=== PATIENT | female | born 1950 | race Caucasian/White ===

== ENCOUNTER 2018-09-01 09:23 | Outpatient (CLI) | payer MEDICARE, OTHER ==
--- NOTE | 2018-09-01 11:39 | BD ---
DEXA SCAN: 09/01/2018 PROVIDED CLINICAL HISTORY: Screening. FINDINGS: LUMBAR SPINE BMD (g/cm2) T-SCORE Z-SCORE L1 0.855 -1.2 0.4 L2 0.871 -1.4 0.4 L3 0.794 -2.6 -0.7 L4 0.890 -1.6 0.4 TOTAL 0.850 -1.8 0.0 FEMORAL NECK 0.727 -1.1 0.4 TOTAL 0.902 -0.3 0.9 TEN YEAR FRACTURE RISK: MAJOR OSTEOPOROTIC FRACTURE: 8.1% HIP FRACTURE: 0.6% IMPRESSION: The calculated bone mineral density meets the WHO criteria for osteopenia and places the patient at i ncreased risk for fracture. POS: [facility]
== END 2018-09-01 09:24 | disposition home or self-care (01) ==
LOC: BICMAMMO 09:23
PROVIDERS: ATTEND Family Medicine
DX: Z12.31 Encounter for screening mammogram for malignant neoplasm of breast (principal); Z13.820 Encounter for screening for osteoporosis; R92.1 Mammographic calcification found on diagnostic imaging of breast; Z78.0 Asymptomatic menopausal state
CPT/HCPCS: 77063; 77067; 77080

== ENCOUNTER 2019-09-04 10:46 | Outpatient (CLI) | payer MEDICARE, OTHER ==
--- NOTE | 2019-09-04 12:48 | MMO ---
Bilateral MAMMO Bilat Screen [facility]. CLINICAL HISTORY: Patient is 68 years old and is seen for screening. The patient has no family history of breast cancer. The patient has no personal history of cancer. VIEWS: The views performed were: bilateral craniocaudal with tomosynthesis and bilateral mediolateral oblique with tomosynthesis. FILMS COMPARED: The present examination has been compared to a prior imaging study performed at [facility] on 09/01/2018. This study has been interpreted with the assistance of computer-aided detection. MAMMOGRAM FINDINGS: There are scattered fibroglandular densities. There are stable benign appearing calcifications seen in both breasts. There are also vascular calcifications. There are no suspicious masses, suspicious calcifications, or new areas of architectural distortion. IMPRESSION: THERE IS NO MAMMOGRAPHIC EVIDENCE OF MALIGNANCY. A ROUTINE FOLLOW-UP MAMMOGRAM IN 1 YEAR IS RECOMMENDED. THE RESULTS OF THIS EXAM WERE SENT TO THE PATIENT. ACR BI-RADS Category 2 - Benign finding MAMMOGRAPHY NOTE: 1. A negative mammogram report should not delay a biopsy if a dominant of clinically suspicious mass is present. 2. Approximately 10% to 15% of breast cancers are not detected by mammography. 3. Adenosis and dense breasts may obscure an underlying neoplasm. Reported by: ANANYA GOLDSTEIN MD Electonically Signed: [id number]
== END 2019-09-04 10:47 | disposition home or self-care (01) ==
LOC: BICMAMMO 10:46
PROVIDERS: ATTEND Family Medicine
DX: Z12.31 Encounter for screening mammogram for malignant neoplasm of breast (principal)
CPT/HCPCS: 77063; 77067

== ENCOUNTER 2020-09-22 09:56 | Outpatient (CLI) | payer MEDICARE ==
--- NOTE | 2020-09-22 10:54 | BD ---
DEXA BONE DENSITY STUDY: Date: 09/22/2020 HISTORY: Postmenopausal. FINDINGS: Lumbar Spine: BMD (g/cm2) L1 0.864 T-Score: -1.1 L2 0.859 T-Score: -1.5 L3 0.783 T-Score: -2.7 L4 0.885 T-Score: -1.6 Total 0.847 T-Score: -1.8 Left Femoral Neck: 0.689 T-Score: -1.4 Total Femur: 0.941 T-Score: +0.0 IMPRESSION: 1. Osteopenia of the lumbar spine and left femoral neck. 2. The 10 year fracture risk for major osteoporotic fracture is 8.9% and for a hip fracture is 1%. T hese fracture probabilities are calculated for an untreated patient. POS: [facility]
--- NOTE | 2020-09-22 11:14 | MMO ---
Bilateral MAMMO Bilat Screen [facility]. CLINICAL HISTORY: Patient is 69 years old and is seen for screening. The patient has no family history of breast cancer. The patient has no personal history of cancer. VIEWS: The views performed were: bilateral craniocaudal with tomosynthesis and bilateral mediolateral oblique with tomosynthesis. FILMS COMPARED: The present examination has been compared to prior imaging studies performed at [facility] on 09/01/2018 and 09/04/2019. This study has been interpreted with the assistance of computer-aided detection. MAMMOGRAM FINDINGS: There are scattered fibroglandular densities. There are vascular calcifications seen in both breasts. There are no suspicious masses, suspicious calcifications, or new areas of architectural distortion. IMPRESSION: THERE IS NO MAMMOGRAPHIC EVIDENCE OF MALIGNANCY. A ROUTINE FOLLOW-UP MAMMOGRAM IN 1 YEAR IS RECOMMENDED. THE RESULTS OF THIS EXAM WERE SENT TO THE PATIENT. ACR BI-RADS Category 2 - Benign finding MAMMOGRAPHY NOTE: 1. A negative mammogram report should not delay a biopsy if a dominant of clinically suspicious mass is present. 2. Approximately 10% to 15% of breast cancers are not detected by mammography. 3. Adenosis and dense breasts may obscure an underlying neoplasm. Reported by: JACQUELINE JACOB MD Electonically Signed: [id number]
== END 2020-09-22 09:57 | disposition home or self-care (01) ==
LOC: BICMAMMO 09:56
PROVIDERS: ATTEND Family Medicine
DX: Z12.31 Encounter for screening mammogram for malignant neoplasm of breast (principal); Z13.820 Encounter for screening for osteoporosis; E28.39 Other primary ovarian failure; M85.89 Other specified disorders of bone density and structure, multiple sites; Z78.0 Asymptomatic menopausal state
CPT/HCPCS: 77063; 77067; 77080

== ENCOUNTER 2022-09-01 09:17 | Outpatient (CLI) | payer MEDICARE ==
[2022-09-01 15:05] LABS: #Basophils 0.1 thou/uL (0.0-0.2); #Eosinphils 0.7 thou/uL (0.0-0.7); #Lymphocytes 1.7 thou/uL (1.20-3.40); #Monocytes 0.5 thou/uL (0.11-0.59); #Neutrophils 3.2 thou/uL (1.40-6.50); %Basophils 0.8 % (0.0-1.0); %Eosinophils 11.3 % (0.0-10.0); %Monocytes 8.3 % (0.0-10.0); %Neutrophils 51.5 % (42.0-75.0); Mean Corpuscular HGB CONC 33.3 g/dL (32.0-36.0); Mean Corpuscular Hemoglobin 32.4 pg (27.0-31.0); Mean Corpuscular Volume 97.2 fl (78.0-98.0); Mean Platelet Volume 7.4 fL (7.4-10.4); Platelet Count 174 10x3/uL (130-400); RBC Distribution Width 12.6 % (11.5-14.5); Red Blood Cell (RBC) Count 4.31 mill/uL (4.20-5.40); White Blood Cell (WBC) Count 6.2 10x3/uL (4.8-10.8)
[2022-09-01 15:26] LABS: Bilirubin Negative (Negative); Blood, Urine Negative (Negative); Clarity Clear (Clear); Glucose, Urine (Dipstick) Normal (Negative); Ketone, Urine Negative (Negative); Leukocyte Negative Leu/uL (Negative); Nitrite Negative (Negative); Protein, Urine (Dipstick) Negative (Neg-Trace); Specific Gravity, Urine 1.023 (1.002-1.036); Urobilinogen Normal mg/dL (Less than 2); pH, Urine 6.5 (5.0-9.0)
[2022-09-01 16:35] LABS: ALT (SGPT) 27 U/L (8-55); AST (SGOT) 25 U/L (5-34); Albumin 4.4 g/dL (3.4-4.8); Alkaline Phosphatase 75 U/L (40-110); Anion Gap 13 mmol/L (10-20); BUN (Urea Nitrogen) 21 mg/dL (9.8-20.1); Bilirubin, Total 0.5 mg/dL (0.2-1.2); Calc. Creatinine Clearance 0 mL/min (70-130); Calcium 10.1 mg/dL (7.8-10.44); Carbon Dioxide 27 mmol/L (23-31); Cardiac Risk 4.1 (Less than 4.5); Chloride 106 mmol/L (98-107); Cholesterol 173 mg/dl (< 200 Desired); Estimated GFR 72; Globulin 2.4 g/dL (2.4-3.5); Glucose 118 mg/dL (80-115); HDL Cholesterol 42 mg/dL (>60 Neg Risk); LDL Cholesterol, Calculated 107 mg/dL; Potassium 3.9 mmol/L (3.5-5.1); Protein, Total 6.8 g/dL (5.8-8.1); Sodium 142 mmol/L (136-145); Triglycerides 121 mg/dL (Less than 150)
[2022-09-01 16:51] LABS: Vitamin D, 25 Hydroxy 29.3 ng/ml (> 30.0)
[2022-09-01 16:55] LABS: Free T4 (Free Thyroxine) 1.12 ng/dL (0.70-1.48)
== END 2022-09-01 09:18 | disposition home or self-care (01) ==
LOC: SCSRAD 09:17
PROVIDERS: ATTEND Family Medicine
DX: M25.511 Pain in right shoulder (principal); F51.01 Primary insomnia; E78.5 Hyperlipidemia, unspecified; M85.88 Other specified disorders of bone density and structure, other site; D75.89 Other specified diseases of blood and blood-forming organs; I10 Essential (primary) hypertension
CPT/HCPCS: 36415; 80053; 80061; 81003; 82306; 82607; 82746; 84439; 84443; 85025

== ENCOUNTER 2022-10-28 09:48 | Outpatient (CLI) | payer MEDICARE | END 2022-10-28 09:49 | disposition home or self-care (01) | LOC: BICMAMMO 09:48 | PROVIDERS: ATTEND Family Medicine | DX: Z12.31 Encounter for screening mammogram for malignant neoplasm of breast (principal); R92.1 Mammographic calcification found on diagnostic imaging of breast; Z91.89 Other specified personal risk factors, not elsewhere classified | CPT/HCPCS: 77063; 77067 ==

== ENCOUNTER 2023-07-11 22:08 | Inpatient (IN) | payer MEDICARE ==
[2023-07-11] MEDS ORDERED: Sodium Chloride 0.9% 100 ML ONE (22:38)
[2023-07-11] MEDS ORDERED: Cefepime 2 GM VIAL ONE (22:38)
[2023-07-11] MEDS ORDERED: Vancomycin (BATCH) 1.5 GM in Premix 1 BAG IVPB SCH (22:45)
[2023-07-11 22:59] LABS: #Basophils 0.1 thou/uL (0.0-0.2); #Monocytes 0.4 thou/uL (0.11-0.59); #Neutrophils 14.7 thou/uL (1.40-6.50); %Basophils 0.4 % (0.0-1.0); %Lymphocytes 3.4 % (21.0-51.0); %Monocytes 2.7 % (0.0-10.0); %Neutrophils 93.1 % (42.0-75.0); Hematocrit 46.1 % (36.0-47.0); Hemoglobin 14.8 g/dL (12.0-16.0); Mean Corpuscular HGB CONC 32.1 g/dL (32.0-36.0); Mean Corpuscular Hemoglobin 30.4 pg (27.0-31.0); Mean Corpuscular Volume 94.7 fl (78.0-98.0); Mean Platelet Volume 10.1 fL (7.4-10.4); Platelet Count 188 10x3/uL (130-400); RBC Distribution Width 14.9 % (11.5-14.5); Red Blood Cell (RBC) Count 4.87 mill/uL (4.20-5.40); White Blood Cell (WBC) Count 15.8 10x3/uL (4.8-10.8)
[2023-07-11 23:25] LABS: ALT (SGPT) 13 U/L (8-55); AST (SGOT) 20 U/L (5-34); Albumin 4.1 g/dL (3.4-4.8); Alkaline Phosphatase 79 U/L (40-110); Anion Gap 15 mmol/L (10-20); BUN (Urea Nitrogen) 7 mg/dL (9.8-20.1); Bilirubin, Total 0.7 mg/dL (0.2-1.2); Calc. Creatinine Clearance 0 mL/min (70-130); Calcium 9.2 mg/dL (7.8-10.44); Carbon Dioxide 17 mmol/L (23-31); Chloride 109 mmol/L (98-107); Estimated GFR 76; Glucose 194 mg/dL (80-115); Potassium 3.7 mmol/L (3.5-5.1); Protein, Total 7.1 g/dL (5.8-8.1); Sodium 137 mmol/L (136-145)
[2023-07-11 23:26] LABS: Troponin I Less than 0.010 ng/mL (< 0.028)
[2023-07-11 23:32] LABS: Bacteria/HPF None Seen HPF (None Seen); Bilirubin Negative (Negative); Blood, Urine Negative (Negative); CAUTI Indications for Culture Alt mental st,lethar; Clarity Clear (Clear); Glucose, Urine (Dipstick) 70 mg/dL (Negative); Ketone, Urine Negative (Negative); Leukocyte Negative Leu/uL (Negative); Nitrite Negative (Negative); Protein, Urine (Dipstick) 10 mg/dL (Neg-Trace); RBC/HPF None Seen HPF (0-3); Specific Gravity, Urine 1.017 (1.002-1.036); Squamous Epithelial 0-3 HPF (0-3); Urobilinogen Normal mg/dL (Less than 2); WBC/HPF 0-3 HPF (0-3); pH, Urine 6.5 (5.0-9.0)
[2023-07-11 23:34] LABS: Urine Culture Reflex No No
[2023-07-12 02:29] LABS: Lactic Acid 3.1 mmol/L (0.5-2.2)
[2023-07-12 02:39] LABS: Troponin I Less than 0.010 ng/mL (< 0.028)
[2023-07-12] MEDS ORDERED: Calcium Carbonate 500 MG ChewTAB PO PRN (02:50)
[2023-07-12] MEDS ORDERED: Ondansetron ODT 4 MG TAB PO PRN (02:50)
[2023-07-12] MEDS ORDERED: Piperacillin/Tazobactam 3.375 GM in Sodium Chloride 0.9% 100 ML IVPB SCH (03:00)
[2023-07-12] MEDS ORDERED: Lactated Ringer's 1,000 ML IV SCH (03:15)
[2023-07-12] MEDS: Acetaminophen 325 MG TAB PO PRN ×4 (03:50→20:58)
[2023-07-12 05:30] LABS: #Basophils 0.1 thou/uL (0.0-0.2); #Monocytes 1.2 thou/uL (0.11-0.59); #Neutrophils 9.4 thou/uL (1.40-6.50); %Basophils 0.4 % (0.0-1.0); %Eosinophils 0.1 % (0.0-10.0); %Lymphocytes 9.2 % (21.0-51.0); %Monocytes 10.3 % (0.0-10.0); %Neutrophils 79.5 % (42.0-75.0); Hematocrit 40.4 % (36.0-47.0); Hemoglobin 12.8 g/dL (12.0-16.0); Mean Corpuscular HGB CONC 31.7 g/dL (32.0-36.0); Mean Corpuscular Hemoglobin 30.7 pg (27.0-31.0); Mean Corpuscular Volume 96.9 fl (78.0-98.0); Mean Platelet Volume 10.1 fL (7.4-10.4); Platelet Count 170 10x3/uL (130-400); RBC Distribution Width 15.2 % (11.5-14.5); Red Blood Cell (RBC) Count 4.17 mill/uL (4.20-5.40); White Blood Cell (WBC) Count 11.8 10x3/uL (4.8-10.8)
[2023-07-12 05:54] LABS: Troponin I Less than 0.010 ng/mL (< 0.028)
[2023-07-12 06:13] LABS: Anion Gap 13 mmol/L (10-20); BUN (Urea Nitrogen) 8 mg/dL (9.8-20.1); Calc. Creatinine Clearance 89 mL/min (70-130); Calcium 8.9 mg/dL (7.8-10.44); Carbon Dioxide 19 mmol/L (23-31); Chloride 112 mmol/L (98-107); Estimated GFR 93; Glucose 116 mg/dL (80-115); Potassium 3.4 mmol/L (3.5-5.1); Sodium 141 mmol/L (136-145)
[2023-07-12] MEDS: Piperacillin/Tazobactam 3.375 GM in Sodium Chloride 0.9% 100 ML IVPB SCH ×2 (08:53→16:28)
[2023-07-12] MEDS: Cefepime 2 GM in Sodium Chloride 0.9% 100 ML IVPB SCH ×2 (08:55→20:59)
[2023-07-12] MEDS: Lisinopril 20 MG TAB PO SCH (08:58)
[2023-07-12] MEDS: Hydrochlorothiazide 25 MG TAB PO SCH (08:58)
[2023-07-12] MEDS: Famotidine 20 MG TAB PO SCH ×2 (08:58→20:59)
[2023-07-12] MEDS: Potassium Chloride 10 MEQ TAB PO SCH ×2 (09:00→20:59)
[2023-07-12] MEDS: Tamsulosin HCl 0.4 MG CAP PO SCH (11:24)
[2023-07-12] MEDS: Atorvastatin Calcium 20 MG TAB PO SCH (20:58)
[2023-07-13] MEDS: Piperacillin/Tazobactam 3.375 GM in Sodium Chloride 0.9% 100 ML IVPB SCH ×3 (00:34→18:46)
[2023-07-13] MEDS: Acetaminophen 325 MG TAB PO PRN ×5 (01:49→20:59)
[2023-07-13 04:18] LABS: #Basophils 0.1 thou/uL (0.0-0.2); #Eosinphils 0.2 thou/uL (0.0-0.7); #Monocytes 0.7 thou/uL (0.11-0.59); #Neutrophils 4.8 thou/uL (1.40-6.50); %Lymphocytes 12.8 % (21.0-51.0); %Monocytes 10.6 % (0.0-10.0); %Neutrophils 72.3 % (42.0-75.0); Hematocrit 40.2 % (36.0-47.0); Hemoglobin 12.8 g/dL (12.0-16.0); Mean Corpuscular HGB CONC 31.8 g/dL (32.0-36.0); Mean Corpuscular Hemoglobin 30.1 pg (27.0-31.0); Mean Corpuscular Volume 94.6 fl (78.0-98.0); Mean Platelet Volume 9.9 fL (7.4-10.4); Platelet Count 171 10x3/uL (130-400); RBC Distribution Width 15.2 % (11.5-14.5); Red Blood Cell (RBC) Count 4.25 mill/uL (4.20-5.40); White Blood Cell (WBC) Count 6.7 10x3/uL (4.8-10.8)
[2023-07-13 05:56] LABS: SARS-CoV-2 NAA Rapid Test Not Detected (NotDetected)
[2023-07-13 07:25] LABS: Anion Gap 13 mmol/L (10-20); BUN (Urea Nitrogen) 7 mg/dL (9.8-20.1); Calc. Creatinine Clearance 73 mL/min (70-130); Calcium 9.3 mg/dL (7.8-10.44); Carbon Dioxide 22 mmol/L (23-31); Chloride 107 mmol/L (98-107); Estimated GFR 75; Glucose 121 mg/dL (80-115); Potassium 3.2 mmol/L (3.5-5.1); Sodium 139 mmol/L (136-145)
[2023-07-13] MEDS: Cefepime 2 GM in Sodium Chloride 0.9% 100 ML IVPB SCH ×2 (10:11→21:09)
[2023-07-13] MEDS: Tamsulosin HCl 0.4 MG CAP PO SCH (10:11)
[2023-07-13] MEDS: Potassium Chloride 10 MEQ TAB PO SCH ×2 (10:12→20:58)
[2023-07-13] MEDS: Hydrochlorothiazide 25 MG TAB PO SCH (10:12)
[2023-07-13] MEDS: Lisinopril 20 MG TAB PO SCH (10:12)
[2023-07-13] MEDS: Famotidine 20 MG TAB PO SCH ×2 (10:12→20:58)
[2023-07-13] MEDS: Atorvastatin Calcium 20 MG TAB PO SCH (20:57)
[2023-07-13] MEDS ORDERED: Vancomycin (BATCH) 1.75 GM in Premix 1 BAG IVPB SCH (21:00)
[2023-07-13] MEDS ORDERED: Vancomycin 1 GM in Premix 1 BAG IVPB SCH (21:00)
[2023-07-14] MEDS: Tamsulosin HCl 0.4 MG CAP PO SCH (07:51)
[2023-07-14] MEDS: Cefepime 2 GM in Sodium Chloride 0.9% 100 ML IVPB SCH ×2 (08:39→20:35)
[2023-07-14] MEDS: Lisinopril 20 MG TAB PO SCH (08:40)
[2023-07-14] MEDS: Acetaminophen 325 MG TAB PO PRN ×3 (08:40→22:28)
[2023-07-14] MEDS: Potassium Chloride 10 MEQ TAB PO SCH ×2 (08:40→20:35)
[2023-07-14] MEDS: Hydrochlorothiazide 25 MG TAB PO SCH (08:41)
[2023-07-14] MEDS: Famotidine 20 MG TAB PO SCH ×2 (08:41→20:35)
[2023-07-14] MEDS ORDERED: Sodium Bicarbonate 2.5 MEQ/5 ML VIAL ONE (10:33)
[2023-07-14] MEDS ORDERED: Heparin 1,000 UNITS/ML VIAL ONE (10:33)
[2023-07-14] MEDS ORDERED: Lidocaine 1% PF 5 ML VIAL ONE (10:33)
[2023-07-14] MEDS: Vancomycin HCl 750 MG in Sodium Chloride 0.9% 250 ML 250 ML IVPB SCH ×2 (12:02→22:31)
[2023-07-14] MEDS: Atorvastatin Calcium 20 MG TAB PO SCH (20:35)
[2023-07-15] MEDS ORDERED: FLU VACC QS2023(65UP)/MF59C/PF 60 MCG/0.5 ML SYRINGE IM ONE (02:15)
[2023-07-15] MEDS: Cefepime 2 GM in Sodium Chloride 0.9% 100 ML IVPB SCH ×3 (06:06→22:28)
[2023-07-15] MEDS: Acetaminophen 325 MG TAB PO PRN ×2 (08:42→20:48)
[2023-07-15] MEDS: Tamsulosin HCl 0.4 MG CAP PO SCH (08:44)
[2023-07-15] MEDS: Lisinopril 20 MG TAB PO SCH (08:44)
[2023-07-15] MEDS: Potassium Chloride 10 MEQ TAB PO SCH ×2 (08:45→20:47)
[2023-07-15] MEDS: Famotidine 20 MG TAB PO SCH ×2 (08:45→20:47)
[2023-07-15] MEDS: Hydrochlorothiazide 25 MG TAB PO SCH (08:47)
[2023-07-15] MEDS ORDERED: Vancomycin HCl 750 MG in Sodium Chloride 0.9% 250 ML 250 ML IVPB SCH ×2 (09:15→11:00)
[2023-07-15 10:05] LABS: Anion Gap 12 mmol/L (10-20); BUN (Urea Nitrogen) 12 mg/dL (9.8-20.1); Calc. Creatinine Clearance 78 mL/min (70-130); Calcium 9.3 mg/dL (7.8-10.44); Carbon Dioxide 21 mmol/L (23-31); Chloride 109 mmol/L (98-107); Estimated GFR 83; Glucose 141 mg/dL (80-115); Potassium 3.3 mmol/L (3.5-5.1); Sodium 139 mmol/L (136-145)
[2023-07-15 10:07] LABS: Vancomycin, Trough 17.4 ug/mL
[2023-07-15] MEDS ORDERED: Potassium Chloride 20 MEQ TAB PO SCH (10:15)
[2023-07-15 11:01] LABS: Magnesium 1.9 mg/dL (1.6-2.6)
[2023-07-15 11:40] VITALS: BMI 31.1
[2023-07-15] MEDS ORDERED: DAPTOmycin 700 MG in Sodium Chloride 0.9% 50 ML IVPB SCH (13:30)
[2023-07-15] MEDS ORDERED: DAPTOMYCIN IVPB SCH (14:00)
[2023-07-15] MEDS ORDERED: SODIUM CHLORIDE 0.9% IVPB SCH (14:00)
[2023-07-15] MEDS: DAPTOmycin 700 MG in Sodium Chloride 0.9% 50 ML IVPB SCH (15:20)
[2023-07-15] MEDS: Atorvastatin Calcium 20 MG TAB PO SCH (20:47)
[2023-07-16] MEDS: Cefepime 2 GM in Sodium Chloride 0.9% 100 ML IVPB SCH ×3 (05:35→21:30)
[2023-07-16] MEDS ORDERED: Electrolyte Replacement Protocol 1 EACH FS SCH (08:30)
[2023-07-16 08:44] LABS: Anion Gap 14 mmol/L (10-20); BUN (Urea Nitrogen) 11 mg/dL (9.8-20.1); Calc. Creatinine Clearance 74 mL/min (70-130); Calcium 9.1 mg/dL (7.8-10.44); Carbon Dioxide 22 mmol/L (23-31); Chloride 109 mmol/L (98-107); Estimated GFR 78; Glucose 108 mg/dL (80-115); Magnesium 1.9 mg/dL (1.6-2.6); Potassium 3.7 mmol/L (3.5-5.1); Sodium 141 mmol/L (136-145)
[2023-07-16] MEDS ORDERED: Electrolyte Replacement Protocol FS PRN (08:45)
[2023-07-16] MEDS: Famotidine 20 MG TAB PO SCH ×2 (09:59→20:18)
[2023-07-16] MEDS: Tamsulosin HCl 0.4 MG CAP PO SCH (10:00)
[2023-07-16] MEDS: Lisinopril 20 MG TAB PO SCH (10:00)
[2023-07-16] MEDS: Hydrochlorothiazide 25 MG TAB PO SCH (10:00)
[2023-07-16] MEDS: Potassium Chloride 10 MEQ TAB PO SCH ×2 (10:00→20:19)
[2023-07-16] MEDS: Acetaminophen 325 MG TAB PO PRN ×2 (10:04→20:19)
[2023-07-16] MEDS ORDERED: Magnesium 2 GM/50 ML(in water) 2 GM in Premix 1 BAG IVPB SCH (13:30)
[2023-07-16] MEDS: DAPTOmycin 700 MG in Sodium Chloride 0.9% 50 ML IVPB SCH (17:19)
[2023-07-16] MEDS: Atorvastatin Calcium 20 MG TAB PO SCH (20:18)
[2023-07-17] MEDS: Cefepime 2 GM in Sodium Chloride 0.9% 100 ML IVPB SCH ×3 (05:32→22:10)
[2023-07-17] MEDS: Lisinopril 20 MG TAB PO SCH (08:45)
[2023-07-17] MEDS: Hydrochlorothiazide 25 MG TAB PO SCH (08:45)
[2023-07-17] MEDS: Famotidine 20 MG TAB PO SCH ×2 (08:46→20:02)
[2023-07-17] MEDS: Potassium Chloride 10 MEQ TAB PO SCH ×2 (08:47→20:02)
[2023-07-17] MEDS: Tamsulosin HCl 0.4 MG CAP PO SCH (08:51)
[2023-07-17 09:01] LABS: #Basophils 0.1 thou/uL (0.0-0.2); #Eosinphils 0.4 thou/uL (0.0-0.7); #Monocytes 0.6 thou/uL (0.11-0.59); #Neutrophils 3.6 thou/uL (1.40-6.50); %Basophils 1.2 % (0.0-1.0); %Eosinophils 5.9 % (0.0-10.0); %Lymphocytes 21.8 % (21.0-51.0); %Monocytes 10.4 % (0.0-10.0); Hematocrit 41.2 % (36.0-47.0); Hemoglobin 13.2 g/dL (12.0-16.0); Mean Corpuscular Hemoglobin 30.6 pg (27.0-31.0); Mean Corpuscular Volume 95.4 fl (78.0-98.0); Platelet Count 166 10x3/uL (130-400); RBC Distribution Width 14.6 % (11.5-14.5); Red Blood Cell (RBC) Count 4.32 mill/uL (4.20-5.40)
[2023-07-17 09:12] LABS: Phosphorus 2.9 mg/dL (2.3-4.7)
[2023-07-17 09:14] LABS: Anion Gap 15 mmol/L (10-20); BUN (Urea Nitrogen) 11 mg/dL (9.8-20.1); Calc. Creatinine Clearance 84 mL/min (70-130); Calcium 9.3 mg/dL (7.8-10.44); Carbon Dioxide 21 mmol/L (23-31); Chloride 108 mmol/L (98-107); Estimated GFR 91; Glucose 109 mg/dL (80-115); Magnesium 2.3 mg/dL (1.6-2.6); Potassium 3.7 mmol/L (3.5-5.1); Sodium 140 mmol/L (136-145)
[2023-07-17] MEDS: DAPTOmycin 700 MG in Sodium Chloride 0.9% 50 ML IVPB SCH (16:55)
[2023-07-17] MEDS: Acetaminophen 325 MG TAB PO PRN ×2 (17:57→22:11)
[2023-07-17] MEDS ORDERED: Activase 2 MG VIAL CATH SCH (18:45)
[2023-07-17] MEDS ORDERED: Sterile Water 10 ML VIAL IVP SCH (19:00)
[2023-07-17] MEDS: Atorvastatin Calcium 20 MG TAB PO SCH (20:03)
[2023-07-18] MEDS: Cefepime 2 GM in Sodium Chloride 0.9% 100 ML IVPB SCH ×3 (05:15→21:33)
[2023-07-18 07:32] LABS: #Basophils 0.1 thou/uL (0.0-0.2); #Eosinphils 0.4 thou/uL (0.0-0.7); #Monocytes 0.7 thou/uL (0.11-0.59); #Neutrophils 3.9 thou/uL (1.40-6.50); %Basophils 1.3 % (0.0-1.0); %Eosinophils 5.7 % (0.0-10.0); %Lymphocytes 24.2 % (21.0-51.0); %Monocytes 10.5 % (0.0-10.0); %Neutrophils 57.4 % (42.0-75.0); Hemoglobin 14.2 g/dL (12.0-16.0); Mean Corpuscular HGB CONC 31.6 g/dL (32.0-36.0); Mean Corpuscular Hemoglobin 30.2 pg (27.0-31.0); Mean Corpuscular Volume 95.7 fl (78.0-98.0); Mean Platelet Volume 9.8 fL (7.4-10.4); Platelet Count 181 10x3/uL (130-400); RBC Distribution Width 14.8 % (11.5-14.5); White Blood Cell (WBC) Count 6.8 10x3/uL (4.8-10.8)
[2023-07-18 08:04] LABS: Anion Gap 15 mmol/L (10-20); BUN (Urea Nitrogen) 12 mg/dL (9.8-20.1); CK (CPK) 16 U/L (29-168); Calc. Creatinine Clearance 79 mL/min (70-130); Calcium 9.8 mg/dL (7.8-10.44); Carbon Dioxide 22 mmol/L (23-31); Chloride 109 mmol/L (98-107); Estimated GFR 84; Glucose 114 mg/dL (80-115); Magnesium 2.1 mg/dL (1.6-2.6); PTT 26.6 sec (22.9-36.1); Potassium 3.7 mmol/L (3.5-5.1); Prothrombin Time 13.9 sec (12.0-14.7); Sodium 142 mmol/L (136-145)
[2023-07-18] MEDS: Hydrochlorothiazide 25 MG TAB PO SCH (08:28)
[2023-07-18] MEDS: Famotidine 20 MG TAB PO SCH ×2 (08:28→20:32)
[2023-07-18] MEDS: Lisinopril 20 MG TAB PO SCH (08:28)
[2023-07-18] MEDS: Tamsulosin HCl 0.4 MG CAP PO SCH (08:29)
[2023-07-18] MEDS: Potassium Chloride 10 MEQ TAB PO SCH ×2 (08:29→20:32)
[2023-07-18] MEDS: Acetaminophen 325 MG TAB PO PRN ×2 (08:34→20:33)
[2023-07-18] MEDS: DAPTOmycin 700 MG in Sodium Chloride 0.9% 50 ML IVPB SCH (15:38)
[2023-07-18] MEDS: Atorvastatin Calcium 20 MG TAB PO SCH (20:34)
[2023-07-19] MEDS: Cefepime 2 GM in Sodium Chloride 0.9% 100 ML IVPB SCH ×2 (05:15→14:29)
[2023-07-19 07:52] LABS: #Basophils 0.1 thou/uL (0.0-0.2); #Eosinphils 0.4 thou/uL (0.0-0.7); #Monocytes 0.8 thou/uL (0.11-0.59); #Neutrophils 5.3 thou/uL (1.40-6.50); %Basophils 1.4 % (0.0-1.0); %Eosinophils 4.5 % (0.0-10.0); %Lymphocytes 18.6 % (21.0-51.0); %Monocytes 9.7 % (0.0-10.0); %Neutrophils 65.2 % (42.0-75.0); Hematocrit 43.4 % (36.0-47.0); Hemoglobin 13.8 g/dL (12.0-16.0); Mean Corpuscular HGB CONC 31.8 g/dL (32.0-36.0); Mean Corpuscular Hemoglobin 30.4 pg (27.0-31.0); Mean Corpuscular Volume 95.6 fl (78.0-98.0); Mean Platelet Volume 10.1 fL (7.4-10.4); Platelet Count 192 10x3/uL (130-400); RBC Distribution Width 14.6 % (11.5-14.5); Red Blood Cell (RBC) Count 4.54 mill/uL (4.20-5.40); White Blood Cell (WBC) Count 8.1 10x3/uL (4.8-10.8)
[2023-07-19 08:12] LABS: Anion Gap 15 mmol/L (10-20); BUN (Urea Nitrogen) 13 mg/dL (9.8-20.1); CK (CPK) 25 U/L (29-168); Calc. Creatinine Clearance 81 mL/min (70-130); Calcium 9.8 mg/dL (7.8-10.44); Carbon Dioxide 19 mmol/L (23-31); Chloride 109 mmol/L (98-107); Estimated GFR 87; Glucose 109 mg/dL (80-115); Potassium 3.8 mmol/L (3.5-5.1); Sodium 139 mmol/L (136-145)
[2023-07-19] MEDS ORDERED: Magnesium 2 GM/50 ML(in water) 2 GM in Premix 1 BAG IVPB SCH (09:00)
[2023-07-19] MEDS: Tamsulosin HCl 0.4 MG CAP PO SCH (09:15)
[2023-07-19] MEDS: Famotidine 20 MG TAB PO SCH (09:16)
[2023-07-19] MEDS: Lisinopril 20 MG TAB PO SCH (09:18)
[2023-07-19] MEDS: Hydrochlorothiazide 25 MG TAB PO SCH (09:18)
[2023-07-19] MEDS: Potassium Chloride 10 MEQ TAB PO SCH (09:19)
[2023-07-19 09:26] VITALS: BP 117/70
[2023-07-19 09:33] VITALS: TEMP 97.8
[2023-07-19] MEDS: DAPTOmycin 700 MG in Sodium Chloride 0.9% 50 ML IVPB SCH (15:38)
== END 2023-07-19 16:41 | disposition home or self-care (01) | DRG 91 ==
LOC: ERS 22:08 → 2NO 07-12 00:41 → T4-B 07-14 14:00
PROVIDERS: ADMIT Student in an Organized Health Care Education/Training Program; ATTEND Hospitalist
PROC: 02HV33Z Insertion of Infusion Device into Superior Vena Cava, Percutaneous Approach (ICD-10-PCS; principal; 2023-07-14)
PROC: B5181ZA Fluoroscopy of Superior Vena Cava using Low Osmolar Contrast, Guidance (ICD-10-PCS; 2023-07-14)
PROC: 3E04329 Introduction of Other Anti-infective into Central Vein, Percutaneous Approach (ICD-10-PCS; 2023-07-14)
DX: T85.730A Infection and inflammatory reaction due to ventricular intracranial (communicating) shunt, initial encounter (principal); A41.9 Sepsis, unspecified organism; I82.621 Acute embolism and thrombosis of deep veins of right upper extremity; I10 Essential (primary) hypertension; M79.89 Other specified soft tissue disorders; E87.6 Hypokalemia; Z98.890 Other specified postprocedural states; Z79.899 Other long term (current) drug therapy; Z11.52 Encounter for screening for COVID-19; E78.00 Pure hypercholesterolemia, unspecified
CPT/HCPCS: 36415; 36569; 51701; 70450; 71045; 75809; 80048; 80053; 80202; 81001; 82140; 82550; 83605; 83735; 83880; 84100; 84443; 84484; 85025; 85610; 85730; 86850; 86900; 86901; 87040; 87086; 93005; 93970; 96365; 96367; C1751; J0692; J0878; J1644; J2543; J2997; J3370; J3475; J3490; J7050; J7120

== ENCOUNTER 2023-09-16 15:43 | Inpatient (IN) | payer MEDICARE ==
[2023-09-16 16:50] LABS: Amphetamine Not Detected (NotDetected); Barbiturates Screen Not Detected (NotDetected); Benzodiazepine Screen Not Detected (NotDetected); Cocaine Metabolite Screen Not Detected (NotDetected); Methadone Not Detected (NotDetected); Methamphetamine Not Detected (NotDetected); Opiate Screen Detected (NotDetected); Oxycodone Screen Not Detected (NotDetected); Phencyclidine (PCP) Not Detected (NotDetected); THC/Cannabinoid Screen Not Detected (NotDetected); Tricyclic Screen Not Detected (NotDetected)
[2023-09-16] MEDS ORDERED: Bisacodyl 10 MG SUPP PR PRN (17:08)
[2023-09-16] MEDS ORDERED: Bisacodyl 5 MG TAB PO PRN (17:08)
[2023-09-16] MEDS ORDERED: Ondansetron PF 4 MG/2 ML Vial IVP PRN (17:08)
[2023-09-16] MEDS ORDERED: Senokot S 8.6-50 MG TAB PO PRN (17:08)
[2023-09-16] MEDS ORDERED: Ondansetron ODT 4 MG TAB PO PRN (17:08)
[2023-09-16] MEDS ORDERED: HYDROcodone/Acetaminophen 10/325 mg Tablet PO PRN (17:08)
[2023-09-16] MEDS ORDERED: Calcium Carbonate 500 MG ChewTAB PO PRN (17:08)
[2023-09-16] MEDS ORDERED: NOREPINEPHRINE 8 MG/250 ML-D5W 250 ML IVPB SCH (17:15)
[2023-09-16 18:25] LABS: Bacteria/HPF None Seen HPF (None Seen); Bilirubin Negative (Negative); Blood, Urine 2+ (Negative); Clarity Clear (Clear); Glucose, Urine (Dipstick) Normal (Negative); Ketone, Urine Negative (Negative); Leukocyte Negative Leu/uL (Negative); Nitrite Negative (Negative); Protein, Urine (Dipstick) Negative (Neg-Trace); RBC/HPF 0-3 HPF (0-3); Specific Gravity, Urine 1.004 (1.002-1.036); Squamous Epithelial None Seen HPF (0-3); Urobilinogen Normal mg/dL (Less than 2); WBC/HPF 0-3 HPF (0-3)
[2023-09-16 18:45] VITALS: BP 120/102
[2023-09-16] MEDS: Sodium Chloride 0.9% 1,000 ML IV SCH (19:24)
[2023-09-16] MEDS: Ciprofloxacin 500 MG TAB PO SCH (21:21)
[2023-09-16] MEDS: Famotidine 20 MG TAB PO SCH (21:22)
[2023-09-16 22:14] VITALS: BMI 32.1
[2023-09-17 06:56] LABS: Anion Gap 10 mmol/L (10-20); BUN (Urea Nitrogen) 11 mg/dL (9.8-20.1); Calc. Creatinine Clearance 63 mL/min (70-130); Calcium 7.6 mg/dL (7.8-10.44); Carbon Dioxide 19 mmol/L (23-31); Chloride 118 mmol/L (98-107); Estimated GFR 61; Glucose 111 mg/dL (80-115); Potassium 3.9 mmol/L (3.5-5.1); Sodium 143 mmol/L (136-145)
[2023-09-17 08:00] LABS: #Eosinphils 0.2 thou/uL (0.0-0.7); #Monocytes 0.7 thou/uL (0.11-0.59); #Neutrophils 4.2 thou/uL (1.40-6.50); %Basophils 0.6 % (0.0-1.0); %Eosinophils 2.7 % (0.0-10.0); %Lymphocytes 17.9 % (21.0-51.0); %Monocytes 10.8 % (0.0-10.0); %Neutrophils 67.2 % (42.0-75.0); Hemoglobin 11.1 g/dL (12.0-16.0); Mean Corpuscular HGB CONC 31.7 g/dL (32.0-36.0); Mean Corpuscular Hemoglobin 30.7 pg (27.0-31.0); Mean Platelet Volume 10.6 fL (7.4-10.4); Platelet Count 136 10x3/uL (130-400); RBC Distribution Width 17.2 % (11.5-14.5); Red Blood Cell (RBC) Count 3.61 mill/uL (4.20-5.40); White Blood Cell (WBC) Count 6.3 10x3/uL (4.8-10.8)
[2023-09-17] MEDS: Tamsulosin HCl 0.4 MG CAP PO SCH (08:22)
[2023-09-17 09:55] VITALS: TEMP 98.3
== END 2023-09-17 12:20 | disposition home or self-care (01) | DRG 918 ==
LOC: ERS 15:43 → ERHOLD 17:15 → CCU 20:44
PROVIDERS: ADMIT Internal Medicine; ATTEND Internal Medicine
PROC: 3E043XZ Introduction of Vasopressor into Central Vein, Percutaneous Approach (ICD-10-PCS; principal; 2023-09-16)
DX: T45.511A Poisoning by anticoagulants, accidental (unintentional), initial encounter (principal); T46.2X1A Poisoning by other antidysrhythmic drugs, accidental (unintentional), initial encounter; T46.1X1A Poisoning by calcium-channel blockers, accidental (unintentional), initial encounter; T39.1X1A Poisoning by 4-Aminophenol derivatives, accidental (unintentional), initial encounter; T48.1X1A Poisoning by skeletal muscle relaxants [neuromuscular blocking agents], accidental (unintentional), initial encounter; I10 Essential (primary) hypertension; E78.5 Hyperlipidemia, unspecified; F41.9 Anxiety disorder, unspecified; I95.9 Hypotension, unspecified; R33.9 Retention of urine, unspecified; Z79.899 Other long term (current) drug therapy; Z88.0 Allergy status to penicillin; Z98.2 Presence of cerebrospinal fluid drainage device; Z87.891 Personal history of nicotine dependence
CPT/HCPCS: 36415; 80048; 80306; 85025; 93005; J7050